=== PATIENT | male | born 1935 | race Caucasian/White ===

== ENCOUNTER 2016-11-19 18:20 | Emergency (ER) | payer OTHER, BC ==
[~2016-11-19] VITALS: Ht 162.6 cm; Wt 77.6 kg
[~2016-11-19 18:20] MED LIST: ADVAIR HFA120 INHALA IH; ALLOPURINOL100 MG PO; AMIODARONE HCL200 MG PO; AMLODIPINE BESYL5 MG PO; AMOX TR-K CLV1 EAC3 PO; ASPIRIN81 M2 PO; Amaryl PO; Aspirin E.C. PO; BICALUTAMIDE50 MG PO; CORDARONE200 MG PO; DULCOLAX10 MG PR; DUONEB 2.5-0.5 M3 ML AEROSOL; ELIQUIS2.5 MG PO; ESOMEPRAZOLE MA40 MG PO; EYE SUPPORT PO; FLEET ENEMA-AD118 ML PR; FLOMAX0.4 MG PO; FUROSEMIDE20 MG PO; FUROSEMIDE40 MG PO; GLIPIZIDE XL5 MG PO; GLIPIZIDE5 MG PO; HYTRIN10 MG PO; HYTRIN5 MG PO; Hytrin PO; LIPITOR10 MG PO; LISINOPRIL20 MG PO; LOPRESSOR25 MG PO; LOPRESSOR50 MG PO; Lasix PO; Lopressor PO; MACULAR VITAMI1 EACH PO; MACUVITE EYE C1 EACH PO; METOPROLOL TART75 MG PO; MILK OF MAGN PO; MYLICON,MYLANTA80 MG PO; NITROSTAT0.4 MG SL; NORVASC10 MG PO; NORVASC5 MG PO; Norvasc PO; PANTOPRAZOLE SO40 MG PO; PHENERGAN-CODE120 ML PO; PRAVASTATIN SOD40 MG PO; PRILOSEC20 MG PO; PROMETHAZINE HC25 M1 PO; ROCALTROL0.5 MCG PO; SALINE NASAL SP45 ML BOTH NARES; SODIUM FLUORIDE PO; SORE THROAT LO1 EAC3 MM; SPIRIVA RESPIMAT4 GM IH; TYLENOL ARTHRI650 MG PO; ZETIA10 MG PO; ZOCOR20 MG PO; Zestril,Prinivil PO; Zocor PO
[2016-11-19 20:18] LABS: ADD MIUA? YES; BILIRUBIN NEGATIVE; BLOOD TRACE; COLOR YELLOW ((YELLOW)); GLUCOSE (STRIP) NEGATIVE; KETONES NEGATIVE; LEUKOCYTES LARGE; NITRITE NEGATIVE; PROTEIN (STRIP) NEGATIVE; SPECIFIC GRAVITY 1.011 (1.000-1.030); UROBILINOGEN 0.2 MG/DL (0.2-1.0)
[2016-11-19 21:14] LABS: AMORPHOUS PHOSPHATE CRYSTALS 2+; BACTERIA 2+; CASTS PRESENT /LPF; CRYSTALS PRESENT; EPITHELIAL CELLS NONE SEEN; HYALINE CASTS 0-5 /LPF; MUCUS NONE SEEN; RED BLOOD CELLS 0-5 /HPF (0-5); WHITE BLOOD CELLS 40-50 /HPF (0-5)
[2016-11-19] MEDS ORDERED: KEFLEX500 MG PO (21:22)
[2016-11-19 21:37] VITALS: BP 118/62
== END 2016-11-19 21:39 | disposition home or self-care (01) ==
LOC: RME 18:20 → EME 18:20 → RME 21:39
PROVIDERS: Physician Assistant
PROC: 0T9B70Z Drainage of Bladder with Drainage Device, Via Natural or Artificial Opening (ICD-10-PCS; principal; 2016-11-19)
DX: N39.0 Urinary tract infection, site not specified (principal); R34 Anuria and oliguria; E11.9 Type 2 diabetes mellitus without complications; E78.5 Hyperlipidemia, unspecified; I10 Essential (primary) hypertension; I25.2 Old myocardial infarction; Z87.442 Personal history of urinary calculi; Z86.73 Personal history of transient ischemic attack (TIA), and cerebral infarction without residual deficits; Z98.61 Coronary angioplasty status; Z87.891 Personal history of nicotine dependence
CPT/HCPCS: 81003; 87077; 87086; 87186; 99281; 99284

== ENCOUNTER 2016-11-24 18:58 | Emergency (ER) | payer OTHER, BC ==
[~2016-11-24] VITALS: Ht 162.6 cm; Wt 79.6 kg
[~2016-11-24 18:58] MED LIST changes: +KEFLEX500 MG PO
[2016-11-24 23:49] VITALS: BP 106/64
== END 2016-11-24 23:50 | disposition home or self-care (01) ==
LOC: EME 18:58
PROC: 3E0234Z Introduction of Serum, Toxoid and Vaccine into Muscle, Percutaneous Approach (ICD-10-PCS; principal; 2016-11-24)
DX: S51.001A Unspecified open wound of right elbow, initial encounter (principal); W18.30XA Fall on same level, unspecified, initial encounter; Z23 Encounter for immunization; E11.9 Type 2 diabetes mellitus without complications; E78.5 Hyperlipidemia, unspecified; I10 Essential (primary) hypertension; I25.2 Old myocardial infarction; Z87.442 Personal history of urinary calculi; Z86.73 Personal history of transient ischemic attack (TIA), and cerebral infarction without residual deficits; Z98.61 Coronary angioplasty status; Z87.891 Personal history of nicotine dependence
CPT/HCPCS: 73080; 99281; 99284

== ENCOUNTER → 2016-12-08 | Outpatient (CLI) | payer OTHER, BC | END | disposition home or self-care (01) | LOC: NUC 08:50 | DX: C61 Malignant neoplasm of prostate (principal); M17.11 Unilateral primary osteoarthritis, right knee; M17.12 Unilateral primary osteoarthritis, left knee; M19.071 Primary osteoarthritis, right ankle and foot; M19.072 Primary osteoarthritis, left ankle and foot | CPT/HCPCS: 78306; A9503 ==

== ENCOUNTER 2016-12-26 10:48 | Inpatient (IN) | payer OTHER, BC ==
[~2016-12-26] VITALS: Ht 165.1 cm; Wt 84.5 kg
[2016-12-26 11:43] LABS: HEMATOCRIT 34.3 % (38.0-50.0); MCH 28.8 PG (29.0-34.0); MCHC 33.5 G/DL (30.0-36.0); MCV 85.8 FL (86-99); MEAN PLAT.VOLUME 10.9 uM^3 (9.0-12.4); PLATELET COUNT 108 K/uL (156-360); RBC DIS.WIDTH-CV 13.9 % (11.8-14.6); RBC DIS.WIDTH-SD 42.8 % (39-53); WHITE BLOOD COUNT 5.5 K/uL (4.1-10.2)
[2016-12-26 11:53] LABS: CHLORIDE 108 mEq/L (99-109); POTASSIUM 4.4 mEq/L (3.7-5.4); SODIUM 142 mEq/L (136-147)
[2016-12-26 11:56] LABS: GLUCOSE 135 mg/dL (70-99)
[2016-12-26 11:57] LABS: ANION GAP 11 MEQ/L (2-14)
[2016-12-26 11:59] LABS: ALKALINE PHOSPHATASE 73 IU/L (3-129); GFR ESTIMATE (CALCULATED) 19 mL/min/
[2016-12-26 12:01] LABS: UREA NITROGEN (BUN) 46 mg/dL (9-23)
[2016-12-26] MEDS ORDERED: LASIX40 MG PO (15:36)
[2016-12-26] MEDS ORDERED: LISINOPRIL20 MG PO (15:44)
[2016-12-26] MEDS ORDERED: COMBIVENT RESPIM4 GM IH (15:45)
[2016-12-26 17:20] VITALS: BP 142/67
[2016-12-26 19:50] VITALS: BP 121/62
[2016-12-26 23:30] VITALS: BP 124/62
[2016-12-27 03:50] VITALS: BP 138/61
[2016-12-27 06:05] LABS: HEMATOCRIT 33.6 % (38.0-50.0); MCH 28.6 PG (29.0-34.0); MCV 86.6 FL (86-99); MEAN PLAT.VOLUME 11.2 uM^3 (9.0-12.4); PLATELET COUNT 102 K/uL (156-360); RBC DIS.WIDTH-CV 14.3 % (11.8-14.6); RBC DIS.WIDTH-SD 45.2 % (39-53); RED BLOOD COUNT 3.88 M/uL (4.00-5.50); WHITE BLOOD COUNT 6.3 K/uL (4.1-10.2)
[2016-12-27 06:25] LABS: ANION GAP 7 MEQ/L (2-14); CHLORIDE 104 MEQ/L (99-109); GFR ESTIMATE (CALCULATED) 21 mL/min/; GLUCOSE 122 mg/dL (70-99); POTASSIUM 4.7 MEQ/L (3.7-5.4); SAMPLE HEMOLYSIS CHECK 0; SAMPLE ICTERIC CHECK 0; SAMPLE LIPEMIA CHECK 0; SODIUM 140 MEQ/L (136-147); UREA NITROGEN (BUN) 44 mg/dL (9-23)
[2016-12-27 07:27] VITALS: BP 133/60
[2016-12-27 11:50] VITALS: BP 136/69
[2016-12-27 12:17] LABS: INTER. NORMALIZED RATIO 1.2; PROTHROMBIN TIME 12.6 (9.2-11.2); PTT 29.7 (25-32)
[2016-12-27 17:44] LABS: HEMATOCRIT 31.1 % (38.0-50.0); MCH 28.5 PG (29.0-34.0); MCHC 32.8 G/DL (30.0-36.0); MCV 86.9 FL (86-99); MEAN PLAT.VOLUME 11.4 uM^3 (9.0-12.4); PLATELET COUNT 98 K/uL (156-360); RBC DIS.WIDTH-CV 14.2 % (11.8-14.6); RBC DIS.WIDTH-SD 45.1 % (39-53); RED BLOOD COUNT 3.58 M/uL (4.00-5.50); WHITE BLOOD COUNT 7.1 K/uL (4.1-10.2)
[2016-12-27 18:35] VITALS: BP 101/51
[2016-12-27 20:02] VITALS: BP 108/70; BP 144/66
[2016-12-28] VITALS: BP 125/61
[2016-12-28 03:44] VITALS: BP 121/62
[2016-12-28 05:57] LABS: ANION GAP 9 MEQ/L (2-14); CHLORIDE 100 MEQ/L (99-109); GFR ESTIMATE (CALCULATED) 21 mL/min/; GLUCOSE 140 mg/dL (70-99); POTASSIUM 4.3 MEQ/L (3.7-5.4); SAMPLE HEMOLYSIS CHECK 0; SAMPLE ICTERIC CHECK 0; SAMPLE LIPEMIA CHECK 0; SODIUM 135 MEQ/L (136-147); UREA NITROGEN (BUN) 50 mg/dL (9-23)
[2016-12-28 10:40] VITALS: BP 129/78
[2016-12-28 16:24] VITALS: BP 122/77
[2016-12-28 20:05] VITALS: BP 104/51
[2016-12-28 23:58] VITALS: BP 119/56
[2016-12-29 03:39] VITALS: BP 101/56
[2016-12-29 07:24] VITALS: BP 136/54
[2016-12-29 09:29] LABS: HEMATOCRIT 26.4 % (38.0-50.0); MCV 84.9 FL (86-99)
[2016-12-29 09:53] LABS: ANION GAP 12 MEQ/L (2-14); CHLORIDE 98 MEQ/L (99-109); GFR ESTIMATE (CALCULATED) 20 mL/min/; GLUCOSE 142 mg/dL (70-99); POTASSIUM 3.9 MEQ/L (3.7-5.4); SAMPLE HEMOLYSIS CHECK 0; SAMPLE ICTERIC CHECK 0; SAMPLE LIPEMIA CHECK 0; SODIUM 133 MEQ/L (136-147); UREA NITROGEN (BUN) 51 mg/dL (9-23)
[2016-12-29 12:16] VITALS: BP 118/44
[2016-12-29 15:40] VITALS: BP 103/60
[2016-12-29 19:39] VITALS: BP 111/56
[2016-12-30] VITALS: BP 107/59
[2016-12-30 04:19] VITALS: BP 106/57
[2016-12-30 08:30] VITALS: BP 110/56
[2016-12-30 11:42] VITALS: BP 114/63
[2016-12-30 16:43] VITALS: BP 140/70
[2016-12-30 20:24] VITALS: BP 112/61
[2016-12-31 00:30] VITALS: BP 118/62
[2016-12-31 04:13] VITALS: BP 123/87
[2016-12-31 06:19] LABS: ANION GAP 10 MEQ/L (2-14); CHLORIDE 99 MEQ/L (99-109); GLUCOSE 143 mg/dL (70-99); MAGNESIUM 2.1 mg/dl (1.3-2.7); SAMPLE HEMOLYSIS CHECK 0; SAMPLE ICTERIC CHECK 0; SAMPLE LIPEMIA CHECK 0; SODIUM 132 MEQ/L (136-147); UREA NITROGEN (BUN) 67 mg/dL (9-23)
[2016-12-31 06:21] LABS: GFR ESTIMATE (CALCULATED) 14 mL/min/; POTASSIUM 4.8 MEQ/L (3.7-5.4)
[2016-12-31 06:24] LABS: EOSINOPHIL (%) 4.7 % (0-5); EOSINOPHIL COUNT 0.2 K/uL (0-0.3); HEMATOCRIT 23.7 % (38.0-50.0); IMMATURE GRANULOCYTE (%) 0.5 % (0.0-0.7); LYMPHOCYTE COUNT 0.8 K/uL (1.0-2.8); MCH 28.2 PG (29.0-34.0); MCHC 33.3 G/DL (30.0-36.0); MCV 84.6 FL (86-99); MEAN PLAT.VOLUME 11.4 uM^3 (9.0-12.4); MONOCYTE (%) 12.6 % (3-12); MONOCYTE COUNT 0.5 K/uL (0-0.8); NEUTROPHIL (%) 64.6 % (45-76); NEUTROPHIL COUNT 2.8 K/uL (1.8-6.4); PLATELET COUNT 102 K/uL (156-360); RBC DIS.WIDTH-CV 14.6 % (11.8-14.6); RBC DIS.WIDTH-SD 45.4 % (39-53); WHITE BLOOD COUNT 4.3 K/uL (4.1-10.2)
[2016-12-31 07:40] VITALS: BP 98/53
[2016-12-31 11:52] VITALS: BP 131/72
[2016-12-31 15:50] VITALS: BP 130/60
[2016-12-31 20:48] VITALS: BP 118/59
[2017-01-01 00:23] VITALS: BP 146/62
[2017-01-01 05:10] VITALS: BP 108/53
[2017-01-01 07:54] VITALS: BP 98/55
[2017-01-01 08:54] LABS: HEMATOCRIT 26.2 % (38.0-50.0); MCHC 32.8 G/DL (30.0-36.0); MCV 85.3 FL (86-99); PLATELET COUNT 125 K/uL (156-360); RBC DIS.WIDTH-SD 46.5 % (39-53); RED BLOOD COUNT 3.07 M/uL (4.00-5.50)
[2017-01-01 09:17] LABS: ANION GAP 8 MEQ/L (2-14); CHLORIDE 101 MEQ/L (99-109); POTASSIUM 4.9 MEQ/L (3.7-5.4); SAMPLE HEMOLYSIS CHECK 0; SAMPLE ICTERIC CHECK 0; SAMPLE LIPEMIA CHECK 0; SODIUM 134 MEQ/L (136-147)
[2017-01-01 09:22] LABS: GFR ESTIMATE (CALCULATED) 16 mL/min/; GLUCOSE 130 mg/dL (70-99); UREA NITROGEN (BUN) 67 mg/dL (9-23)
[2017-01-01 11:52] VITALS: BP 119/55
[2017-01-01 12:46] LABS: POC NON-PRINT COM 1 ND
[2017-01-01 15:38] VITALS: BP 101/57
[2017-01-02] VITALS (7 sets, daily range): BP systolic 109–137; BP diastolic 55–64
[2017-01-02 06:06] LABS: EOSINOPHIL (%) 3.6 % (0-5); EOSINOPHIL COUNT 0.2 K/uL (0-0.3); HEMATOCRIT 24.9 % (38.0-50.0); IMMATURE GRANULOCYTE (%) 0.7 % (0.0-0.7); MCH 27.8 PG (29.0-34.0); MCHC 32.5 G/DL (30.0-36.0); MCV 85.6 FL (86-99); MEAN PLAT.VOLUME 10.5 uM^3 (9.0-12.4); MONOCYTE (%) 9.6 % (3-12); MONOCYTE COUNT 0.4 K/uL (0-0.8); NEUTROPHIL (%) 63.5 % (45-76); NEUTROPHIL COUNT 2.8 K/uL (1.8-6.4); PLATELET COUNT 122 K/uL (156-360); RBC DIS.WIDTH-CV 14.9 % (11.8-14.6); RBC DIS.WIDTH-SD 46.7 % (39-53); RED BLOOD COUNT 2.91 M/uL (4.00-5.50); WHITE BLOOD COUNT 4.5 K/uL (4.1-10.2)
[2017-01-02 06:23] LABS: ANION GAP 8 MEQ/L (2-14); CHLORIDE 103 MEQ/L (99-109); GFR ESTIMATE (CALCULATED) 17 mL/min/; GLUCOSE 113 mg/dL (70-99); IRON 29 MCG/DL (35-150); POTASSIUM 5.2 MEQ/L (3.7-5.4); SAMPLE HEMOLYSIS CHECK 0; SAMPLE ICTERIC CHECK 0; SAMPLE LIPEMIA CHECK 0; SODIUM 135 MEQ/L (136-147); UREA NITROGEN (BUN) 66 mg/dL (9-23)
[2017-01-02 07:51] LABS: FERRITIN 86 NG/ML (22-322)
[2017-01-03 03:27] VITALS: BP 109/56
[2017-01-03 05:27] LABS: HEMATOCRIT 25.9 % (38.0-50.0); MCH 27.7 PG (29.0-34.0); MCV 86.3 FL (86-99); MEAN PLAT.VOLUME 10.1 uM^3 (9.0-12.4); PLATELET COUNT 147 K/uL (156-360); RBC DIS.WIDTH-CV 14.8 % (11.8-14.6); WHITE BLOOD COUNT 5.1 K/uL (4.1-10.2)
[2017-01-03 06:22] LABS: ANION GAP 8 MEQ/L (2-14); CHLORIDE 103 MEQ/L (99-109); GFR ESTIMATE (CALCULATED) 20 mL/min/; GLUCOSE 128 mg/dL (70-99); POTASSIUM 5.1 MEQ/L (3.7-5.4); SAMPLE HEMOLYSIS CHECK 0; SAMPLE ICTERIC CHECK 0; SAMPLE LIPEMIA CHECK 0; SODIUM 137 MEQ/L (136-147); UREA NITROGEN (BUN) 60 mg/dL (9-23)
[2017-01-03 08:12] VITALS: BP 132/62
[2017-01-03 11:56] VITALS: BP 133/63
[2017-01-03] MEDS ORDERED: FERROUS SULFAT325 MG PO (13:15)
[2017-01-03] MEDS ORDERED: FUROSEMIDE20 MG PO (13:17)
[2017-01-03] MEDS ORDERED: DOCUSATE SODIU100 MG PO (13:17)
[2017-01-03] MEDS ORDERED: CITROMA296 ML PO (13:17)
[2017-01-03] MEDS ORDERED: SENNA PLUS TAB1 EACH PO (13:18)
[2017-01-03] MEDS ORDERED: ENDOCET 5-3251 EACH PO (13:18)
[2017-01-03] MEDS ORDERED: BISAC-EVAC10 MG PR (13:43)
[2017-01-03 16:30] VITALS: BP 149/65
== END 2017-01-03 17:52 | DRG 536 ==
LOC: EME 10:48 → EDOF 14:42 → 3EAST 14:42
PROVIDERS: Emergency Medicine; Hospitalist; Internal Medicine; Internal Medicine Nephrology; Nurse Practitioner Adult Health; Orthopaedic Surgery; Physician Assistant
PROC: 0SS Lower Joints, Reposition (ICD-10-PCS; principal; 2016-12-27)
DX: S72.141A Displaced intertrochanteric fracture of right femur, initial encounter for closed fracture (principal); I50.20 Unspecified systolic (congestive) heart failure; N17.9 Acute kidney failure, unspecified; N18.4 Chronic kidney disease, stage 4 (severe); W18.30XA Fall on same level, unspecified, initial encounter; I48.2 Chronic atrial fibrillation; D63.1 Anemia in chronic kidney disease; I25.5 Ischemic cardiomyopathy; Z87.891 Personal history of nicotine dependence; I25.2 Old myocardial infarction; E11.22 Type 2 diabetes mellitus with diabetic chronic kidney disease; I25.10 Atherosclerotic heart disease of native coronary artery without angina pectoris; R33.9 Retention of urine, unspecified; J44.9 Chronic obstructive pulmonary disease, unspecified; D62 Acute posthemorrhagic anemia; D69.6 Thrombocytopenia, unspecified; E78.5 Hyperlipidemia, unspecified; I13.0 Hypertensive heart and chronic kidney disease with heart failure and stage 1 through stage 4 chronic kidney disease, or unspecified chronic kidney disease; R19.5 Other fecal abnormalities; E87.1 Hypo-osmolality and hyponatremia; N40.1 Benign prostatic hyperplasia with lower urinary tract symptoms; D50.9 Iron deficiency anemia, unspecified; C61 Malignant neoplasm of prostate; Y92.009 Unspecified place in unspecified non-institutional (private) residence as the place of occurrence of the external cause
CPT/HCPCS: 73501; 73502; 73552; 73560; 73564; 76000; 76770; 80048; 80053; 81003; 82272; 82306; 82728; 83540; 83735; 84100; 84466; 85014; 85018; 85025; 85027; 85610; 85730; 93005; 94640; 94640 76; 97530 GO; 97530 GP; 99281; 99285; C1713; G0103; J0690; J1650; J1756; J2270; J2405; J7030; J7050; J7120; S0028

== ENCOUNTER 2017-01-23 06:06 | Inpatient (IN) | payer OTHER, BC ==
[~2017-01-23] VITALS: Ht 162.6 cm; Wt 76.9 kg
[~2017-01-23 06:06] MED LIST changes: +BISAC-EVAC10 MG PR; +CITROMA296 ML PO; +COMBIVENT RESPIM4 GM IH; +DOCUSATE SODIU100 MG PO; +ENDOCET 5-3251 EACH PO; +FERROUS SULFAT325 MG PO; +LASIX40 MG PO; +SENNA PLUS TAB1 EACH PO
[2017-01-23 07:24] LABS: EOSINOPHIL (%) 1.4 % (0-5); HEMATOCRIT 32.9 % (38.0-50.0); IMMATURE GRANULOCYTE (%) 0.7 % (0.0-0.7); INSTRUMENT ABS NEUTROPHIL CT 1.3 K/uL; LYMPHOCYTE COUNT 0.2 K/uL (1.0-2.8); MCH 28.5 PG (29.0-34.0); MCHC 32.5 G/DL (30.0-36.0); MCV 87.7 FL (86-99); MEAN PLAT.VOLUME 10.6 uM^3 (9.0-12.4); MONOCYTE (%) 0.7 % (3-12); NEUTROPHIL (%) 86.9 % (45-76); NEUTROPHIL COUNT 1.3 K/uL (1.8-6.4); PLATELET COUNT 142 K/uL (156-360); RBC DIS.WIDTH-CV 14.9 % (11.8-14.6); RBC DIS.WIDTH-SD 47.8 % (39-53); RED BLOOD COUNT 3.75 M/uL (4.00-5.50)
[2017-01-23 07:25] LABS: WHITE BLOOD COUNT 1.5 K/uL (4.1-10.2)
[2017-01-23] MEDS ORDERED: OXAYDO5 MG PO (07:37)
[2017-01-23 08:29] LABS: BILIRUBIN NEGATIVE; BLOOD LARGE; COLOR BLOODY ((YELLOW)); GLUCOSE (STRIP) 250; KETONES NEGATIVE; SPECIFIC GRAVITY 1.015 (1.000-1.030)
[2017-01-23 08:30] LABS: ADD MIUA? YES; LEUKOCYTES NEGATIVE; NITRITE NEGATIVE; PROTEIN (STRIP) >300; UROBILINOGEN 0.2 MG/DL (0.2-1.0)
[2017-01-23 08:31] LABS: RED BLOOD CELLS TNTC /HPF (0-5); UCUL ADDED? YES
[2017-01-23 08:57] LABS: ANION GAP 10 MEQ/L (2-14); CHLORIDE 105 MEQ/L (99-109); POTASSIUM 4.2 MEQ/L (3.7-5.4); SAMPLE HEMOLYSIS CHECK 0; SAMPLE ICTERIC CHECK 0; SAMPLE LIPEMIA CHECK 0; SODIUM 139 MEQ/L (136-147); TOTAL BILIRUBIN 1.2 MG/DL (0.0-1.0)
[2017-01-23 09:03] LABS: ALKALINE PHOSPHATASE 96 IU/L (3-129); GFR ESTIMATE (CALCULATED) 29 mL/min/; GLUCOSE 111 mg/dL (70-99); UREA NITROGEN (BUN) 43 mg/dL (9-23)
[2017-01-23 12:29] VITALS: BP 120/56
[2017-01-23] MEDS ORDERED: CORDARONE200 MG PO (13:30)
[2017-01-23] MEDS ORDERED: MILK OF MAGN PO (13:35)
[2017-01-23 20:00] VITALS: BP 118/59
[2017-01-23 23:24] VITALS: BP 98/55
[2017-01-24 03:56] VITALS: BP 108/57
[2017-01-24 08:00] VITALS: BP 124/61
[2017-01-24 08:18] LABS: ANION GAP 12 MEQ/L (2-14); CHLORIDE 103 MEQ/L (99-109); GFR ESTIMATE (CALCULATED) 26 mL/min/; GLUCOSE 106 mg/dL (70-99); POTASSIUM 4.8 MEQ/L (3.7-5.4); SAMPLE HEMOLYSIS CHECK 0; SAMPLE ICTERIC CHECK 0; SAMPLE LIPEMIA CHECK 0; SODIUM 136 MEQ/L (136-147); UREA NITROGEN (BUN) 50 mg/dL (9-23)
[2017-01-24 08:40] LABS: ABS NEUTROPHIL COUNT 12.1; BAND NEUTROPHILS 23.9 % (0-8.0); EOSINOPHIL ABS CT 0; INSTRUMENT ABS NEUTROPHIL CT 11.5 K/uL; LYMPHOCYTES 1.7 % (15.0-45.0); MCH 28.2 PG (29.0-34.0); MCHC 31.5 G/DL (30.0-36.0); MCV 89.7 FL (86-99); MEAN PLAT.VOLUME 11.5 uM^3 (9.0-12.4); MYELOCYTES 0.9 %; OVALOCYTES 1+; PLAT.SUFFICIENCY DECREASED; RBC DIS.WIDTH-CV 15.6 % (11.8-14.6); RED BLOOD COUNT 3.01 M/uL (4.00-5.50); SEG.NEUTROPHILS 66.4 % (46.0-76.0)
[2017-01-24 08:55] LABS: PLATELET COUNT 87 K/uL (156-360); WHITE BLOOD COUNT 13.4 K/uL (4.1-10.2)
[2017-01-24 16:00] VITALS: BP 126/68
[2017-01-24 19:03] VITALS: BP 118/65
[2017-01-24 23:42] VITALS: BP 110/64
[2017-01-25 03:45] VITALS: BP 106/58
[2017-01-25 06:43] LABS: HEMATOCRIT 25.5 % (38.0-50.0); MCH 28.8 PG (29.0-34.0); MCHC 32.5 G/DL (30.0-36.0); MCV 88.5 FL (86-99); MEAN PLAT.VOLUME 11.9 uM^3 (9.0-12.4); PLATELET COUNT 85 K/uL (156-360); RBC DIS.WIDTH-CV 15.6 % (11.8-14.6); RBC DIS.WIDTH-SD 50.6 % (39-53); RED BLOOD COUNT 2.88 M/uL (4.00-5.50); WHITE BLOOD COUNT 9.7 K/uL (4.1-10.2)
[2017-01-25 07:03] LABS: ANION GAP 9 MEQ/L (2-14); CHLORIDE 105 MEQ/L (99-109); GFR ESTIMATE (CALCULATED) 31 mL/min/; GLUCOSE 87 mg/dL (70-99); POTASSIUM 4.6 MEQ/L (3.7-5.4); SAMPLE HEMOLYSIS CHECK 0; SAMPLE ICTERIC CHECK 0; SAMPLE LIPEMIA CHECK 0; SODIUM 135 MEQ/L (136-147); UREA NITROGEN (BUN) 52 mg/dL (9-23)
[2017-01-25 07:29] LABS: EOSINOPHIL (%) 0.2 % (0-5); IMMATURE GRANULOCYTE (%) 2.9 % (0.0-0.7); IMMATURE GRANULOCYTE COUNT 0.3 K/uL; INSTRUMENT ABS NEUTROPHIL CT 8.2 K/uL; LYMPHOCYTE COUNT 0.6 K/uL (1.0-2.8); MONOCYTE COUNT 0.6 K/uL (0-0.8); NEUTROPHIL (%) 84.8 % (45-76); NEUTROPHIL COUNT 8.2 K/uL (1.8-6.4)
[2017-01-25 08:30] VITALS: BP 88/50
[2017-01-25 11:15] VITALS: BP 113/63
[2017-01-25 15:55] VITALS: BP 102/64
[2017-01-25 19:30] VITALS: BP 115/66
[2017-01-25 23:10] VITALS: BP 106/57
[2017-01-26 03:50] VITALS: BP 127/70
[2017-01-26 07:07] LABS: EOSINOPHIL COUNT 0.1 K/uL (0-0.3); HEMATOCRIT 26.2 % (38.0-50.0); IMMATURE GRANULOCYTE COUNT 0.1 K/uL; INSTRUMENT ABS NEUTROPHIL CT 7.1 K/uL; LYMPHOCYTE COUNT 0.7 K/uL (1.0-2.8); MCH 28.1 PG (29.0-34.0); MCHC 31.7 G/DL (30.0-36.0); MCV 88.8 FL (86-99); MONOCYTE (%) 4.9 % (3-12); MONOCYTE COUNT 0.4 K/uL (0-0.8); NEUTROPHIL (%) 84.4 % (45-76); NEUTROPHIL COUNT 7.1 K/uL (1.8-6.4); PLATELET COUNT 94 K/uL (156-360); RBC DIS.WIDTH-CV 15.8 % (11.8-14.6); RBC DIS.WIDTH-SD 51.4 % (39-53); RED BLOOD COUNT 2.95 M/uL (4.00-5.50); WHITE BLOOD COUNT 8.4 K/uL (4.1-10.2)
[2017-01-26 07:39] LABS: ANION GAP 7 MEQ/L (2-14); CHLORIDE 106 MEQ/L (99-109); GFR ESTIMATE (CALCULATED) 32 mL/min/; GLUCOSE 92 mg/dL (70-99); MAGNESIUM 1.7 mg/dl (1.3-2.7); POTASSIUM 4.3 MEQ/L (3.7-5.4); SAMPLE HEMOLYSIS CHECK 0; SAMPLE ICTERIC CHECK 0; SAMPLE LIPEMIA CHECK 0; SODIUM 134 MEQ/L (136-147); UREA NITROGEN (BUN) 50 mg/dL (9-23); URIC ACID 6.6 mg/dL (3.1-9.2)
[2017-01-26 08:25] VITALS: BP 122/58
[2017-01-26 12:56] VITALS: BP 142/64
[2017-01-26 16:15] VITALS: BP 140/70
[2017-01-26 19:42] VITALS: BP 135/65
[2017-01-26 23:37] VITALS: BP 137/70
[2017-01-27 03:42] VITALS: BP 141/70
[2017-01-27 07:31] LABS: ANION GAP 6 MEQ/L (2-14); CHLORIDE 106 MEQ/L (99-109); GFR ESTIMATE (CALCULATED) 34 mL/min/; GLUCOSE 111 mg/dL (70-99); POTASSIUM 4.3 MEQ/L (3.7-5.4); SAMPLE HEMOLYSIS CHECK 0; SAMPLE ICTERIC CHECK 0; SAMPLE LIPEMIA CHECK 0; SODIUM 135 MEQ/L (136-147); UREA NITROGEN (BUN) 42 mg/dL (9-23)
[2017-01-27 08:15] VITALS: BP 136/63
[2017-01-27 11:35] VITALS: BP 135/61
[2017-01-27 15:16] VITALS: BP 130/70
[2017-01-27 21:08] VITALS: BP 125/64
[2017-01-28 01:33] VITALS: BP 102/55
[2017-01-28 03:28] VITALS: BP 126/61
[2017-01-28 07:47] VITALS: BP 128/80
[2017-01-28 07:59] LABS: ANION GAP 9 MEQ/L (2-14); CHLORIDE 107 MEQ/L (99-109); GFR ESTIMATE (CALCULATED) 34 mL/min/; GLUCOSE 107 mg/dL (70-99); POTASSIUM 4.3 MEQ/L (3.7-5.4); SAMPLE HEMOLYSIS CHECK 0; SAMPLE ICTERIC CHECK 0; SAMPLE LIPEMIA CHECK 0; SODIUM 139 MEQ/L (136-147); UREA NITROGEN (BUN) 37 mg/dL (9-23)
[2017-01-28 10:29] VITALS: BP 125/62
[2017-01-28] MEDS ORDERED: TAMSULOSIN HCL0.4 MG PO (11:52)
[2017-01-28] MEDS ORDERED: LOPRESSOR25 MG PO (11:58)
[2017-01-28] MEDS ORDERED: CEFTIN500 MG PO (12:00)
[2017-01-28 16:00] VITALS: BP 124/63
== END 2017-01-28 18:31 | DRG 698 ==
LOC: EME → EDBD 06:06 → 2EAST 09:20 → EDOF 09:20 → 2EAST 12:43
PROVIDERS: Emergency Medicine; Internal Medicine; Internal Medicine Nephrology
DX: T83.091A Other mechanical complication of indwelling urethral catheter, initial encounter (principal); S37.39XA Other injury of urethra, initial encounter; A41.9 Sepsis, unspecified organism; N39.0 Urinary tract infection, site not specified; C79.51 Secondary malignant neoplasm of bone; N18.4 Chronic kidney disease, stage 4 (severe); N17.9 Acute kidney failure, unspecified; I50.20 Unspecified systolic (congestive) heart failure; I47.2 Ventricular tachycardia; Y84.6 Urinary catheterization as the cause of abnormal reaction of the patient, or of later complication, without mention of misadventure at the time of the procedure; R33.9 Retention of urine, unspecified; N26.1 Atrophy of kidney (terminal); N20.0 Calculus of kidney; D63.1 Anemia in chronic kidney disease; E11.22 Type 2 diabetes mellitus with diabetic chronic kidney disease; J44.9 Chronic obstructive pulmonary disease, unspecified; E78.00 Pure hypercholesterolemia, unspecified; I25.5 Ischemic cardiomyopathy; I48.2 Chronic atrial fibrillation; I25.10 Atherosclerotic heart disease of native coronary artery without angina pectoris; C61 Malignant neoplasm of prostate; N40.1 Benign prostatic hyperplasia with lower urinary tract symptoms; Y92.129 Unspecified place in nursing home as the place of occurrence of the external cause; I25.2 Old myocardial infarction; Z87.891 Personal history of nicotine dependence; Z95.5 Presence of coronary angioplasty implant and graft
CPT/HCPCS: 74176; 76770; 80048; 80053; 80069; 81003; 83605; 83735; 84100; 84550; 85025; 86850; 86900; 86901; 87040; 87077; 87086; 87186; 87801; 93005; 94010; 94640; 94640 76; 94760; 94799; 97530 GO; 99202; 99281; 99285; J0692; J0696; J2405; J3010; J7030; J7050

== ENCOUNTER 2017-02-26 17:14 | Emergency (ER) | payer OTHER, BC ==
[~2017-02-26] VITALS: Ht 165.1 cm; Wt 75.0 kg
[~2017-02-26 17:14] MED LIST changes: +CEFTIN500 MG PO; +OXAYDO5 MG PO; +TAMSULOSIN HCL0.4 MG PO
[2017-02-26] MEDS ORDERED: NYSTATIN-TRIAMC15 GM TP (20:01)
[2017-02-26 20:16] VITALS: BP 156/70
== END 2017-02-26 20:17 | disposition home or self-care (01) ==
LOC: EME 17:14
DX: S51.812A Laceration without foreign body of left forearm, initial encounter (principal); W01.190A Fall on same level from slipping, tripping and stumbling with subsequent striking against furniture, initial encounter; B37.2 Candidiasis of skin and nail; I50.9 Heart failure, unspecified; G89.29 Other chronic pain; I10 Essential (primary) hypertension; E78.5 Hyperlipidemia, unspecified; I25.2 Old myocardial infarction; M10.9 Gout, unspecified; E11.9 Type 2 diabetes mellitus without complications; F32.9 Major depressive disorder, single episode, unspecified; Z86.73 Personal history of transient ischemic attack (TIA), and cerebral infarction without residual deficits; Z87.891 Personal history of nicotine dependence; Z96.641 Presence of right artificial hip joint
CPT/HCPCS: 73090; 73502; 99281; 99284

== ENCOUNTER 2017-05-01 13:29 | Emergency (ER) | payer OTHER, BC ==
[~2017-05-01] VITALS: Ht 162.6 cm; Wt 71.5 kg
[~2017-05-01 13:29] MED LIST changes: +NYSTATIN-TRIAMC15 GM TP
[2017-05-01 14:44] LABS: HEMATOCRIT 42.3 % (38.0-50.0); MCH 28.7 PG (29.0-34.0); MCHC 32.6 G/DL (30.0-36.0); MCV 87.9 FL (86-99); MEAN PLAT.VOLUME 10.8 uM^3 (9.0-12.4); PLATELET COUNT 132 K/uL (156-360); RBC DIS.WIDTH-CV 13.6 % (11.8-14.6); RBC DIS.WIDTH-SD 43.8 % (39-53); RED BLOOD COUNT 4.81 M/uL (4.00-5.50); WHITE BLOOD COUNT 5.8 K/uL (4.1-10.2)
[2017-05-01 14:55] LABS: CHLORIDE 101 mEq/L (99-109); POTASSIUM 4.7 mEq/L (3.7-5.4); SODIUM 137 mEq/L (136-147)
[2017-05-01 14:56] LABS: GLUCOSE 148 mg/dL (70-99)
[2017-05-01 14:58] LABS: ANION GAP 9 MEQ/L (2-14)
[2017-05-01 15:00] LABS: GFR ESTIMATE (CALCULATED) 25 mL/min/
[2017-05-01 15:01] LABS: UREA NITROGEN (BUN) 32 mg/dL (9-23)
[2017-05-01 15:05] LABS: TROP-I INTERPRETATION NEGATIVE; TROPONIN-I 0.03 ng/mL (0.0-0.30)
[2017-05-01 15:48] LABS: ADD MIUA? YES; BILIRUBIN NEGATIVE; BLOOD NEGATIVE; COLOR YELLOW ((YELLOW)); GLUCOSE (STRIP) NEGATIVE; KETONES NEGATIVE; LEUKOCYTES TRACE; NITRITE NEGATIVE; PROTEIN (STRIP) NEGATIVE; SPECIFIC GRAVITY 1.011 (1.000-1.030); UROBILINOGEN 0.2 MG/DL (0.2-1.0)
[2017-05-01 15:54] LABS: ALKALINE PHOSPHATASE 108 IU/L (3-129)
[2017-05-01 15:57] LABS: DIRECT BILIRUBIN 0.4 mg/dL (0.0-0.3)
[2017-05-01 15:58] LABS: LIPASE 15 U/L (1.0-51.0)
[2017-05-01 16:04] LABS: BACTERIA NONE SEEN /HPF; EPITHELIAL CELLS NONE SEEN /HPF; HYALINE CASTS 20-30 /LPF; MUCUS TRACE /LPF; RED BLOOD CELLS 0-5 /HPF (0-5)
[2017-05-01] MEDS ORDERED: VANTIN100 MG PO (16:22)
[2017-05-01 18:37] VITALS: BP 133/83
== END 2017-05-01 18:57 | disposition home or self-care (01) ==
LOC: EME 13:29
PROVIDERS: Physician Assistant
DX: N39.0 Urinary tract infection, site not specified (principal); Z86.73 Personal history of transient ischemic attack (TIA), and cerebral infarction without residual deficits; E11.9 Type 2 diabetes mellitus without complications; E78.5 Hyperlipidemia, unspecified; I10 Essential (primary) hypertension; I25.2 Old myocardial infarction; Z87.442 Personal history of urinary calculi; Z87.891 Personal history of nicotine dependence; Z98.61 Coronary angioplasty status
CPT/HCPCS: 71020; 74176; 80048; 80076; 81003; 83690; 84484; 85027; 93005; 99281; 99285; J0696; J7030; J7050

== ENCOUNTER 2017-07-16 18:09 | Emergency (ER) | payer OTHER, BC ==
[~2017-07-16] VITALS: Ht 162.6 cm; Wt 72.0 kg
[~2017-07-16 18:09] MED LIST changes: +VANTIN100 MG PO
[2017-07-16 22:14] VITALS: BP 156/83
== END 2017-07-16 22:14 | disposition home or self-care (01) ==
LOC: RME 18:09 → EME 18:09 → RME 22:14
PROC: 3E0234Z Introduction of Serum, Toxoid and Vaccine into Muscle, Percutaneous Approach (ICD-10-PCS; principal; 2017-07-16)
DX: S41.112A Laceration without foreign body of left upper arm, initial encounter (principal); W01.118A Fall on same level from slipping, tripping and stumbling with subsequent striking against other sharp object, initial encounter; W31.89XA Contact with other specified machinery, initial encounter; Y93.01 Activity, walking, marching and hiking; Y92.000 Kitchen of unspecified non-institutional (private) residence as the place of occurrence of the external cause; Z87.442 Personal history of urinary calculi; I25.2 Old myocardial infarction; I12.9 Hypertensive chronic kidney disease with stage 1 through stage 4 chronic kidney disease, or unspecified chronic kidney disease; N18.9 Chronic kidney disease, unspecified; E11.22 Type 2 diabetes mellitus with diabetic chronic kidney disease; E78.5 Hyperlipidemia, unspecified; Z86.73 Personal history of transient ischemic attack (TIA), and cerebral infarction without residual deficits; M10.9 Gout, unspecified; Z98.61 Coronary angioplasty status; Z87.891 Personal history of nicotine dependence; Z85.46 Personal history of malignant neoplasm of prostate
CPT/HCPCS: 70450; 73060; 73090; 99281; 99284

== ENCOUNTER 2017-08-02 15:12 | Inpatient (IN) | payer OTHER, BC ==
[~2017-08-02] VITALS: Ht 162.6 cm; Wt 72.7 kg
[2017-08-02 16:49] LABS: ADD MIUA? YES; BILIRUBIN NEGATIVE; BLOOD MODERATE; COLOR YELLOW ((YELLOW)); GLUCOSE (STRIP) NEGATIVE; KETONES NEGATIVE; LEUKOCYTES NEGATIVE; NITRITE NEGATIVE; PROTEIN (STRIP) NEGATIVE; SPECIFIC GRAVITY 1.013 (1.000-1.030); UROBILINOGEN 0.2 MG/DL (0.2-1.0)
[2017-08-02 16:54] LABS: BACTERIA RARE /HPF; EPITHELIAL CELLS RARE /HPF; HYALINE CASTS 20-30 /LPF; MUCUS TRACE /LPF; RED BLOOD CELLS 0-5 /HPF (0-5); UCUL ADDED? NO; WHITE BLOOD CELLS 0-5 /HPF (0-5)
[2017-08-02 16:54] LABS: EOSINOPHIL (%) 0 % (0-5); HEMATOCRIT 35.3 % (38.0-50.0); IMMATURE GRANULOCYTE (%) 0.6 % (0.0-0.7); IMMATURE GRANULOCYTE COUNT 0.1 K/uL; INSTRUMENT ABS NEUTROPHIL CT 7.8 K/uL; LYMPHOCYTE COUNT 0.5 K/uL (1.0-2.8); MCH 30.1 PG (29.0-34.0); MCHC 33.7 G/DL (30.0-36.0); MCV 89.1 FL (86-99); MONOCYTE (%) 5.7 % (3-12); MONOCYTE COUNT 0.5 K/uL (0-0.8); NEUTROPHIL (%) 87.6 % (45-76); NEUTROPHIL COUNT 7.8 K/uL (1.8-6.4); PLATELET COUNT 106 K/uL (156-360); RBC DIS.WIDTH-CV 13.3 % (11.8-14.6); RBC DIS.WIDTH-SD 43.2 % (39-53); RED BLOOD COUNT 3.96 M/uL (4.00-5.50); WHITE BLOOD COUNT 8.9 K/uL (4.1-10.2)
[2017-08-02 17:05] LABS: CHLORIDE 104 mEq/L (99-109); POTASSIUM 4.3 mEq/L (3.7-5.4); SODIUM 138 mEq/L (136-147)
[2017-08-02 17:06] LABS: GLUCOSE 210 mg/dL (70-99)
[2017-08-02 17:08] LABS: ANION GAP 11 MEQ/L (2-14)
[2017-08-02 17:10] LABS: GFR ESTIMATE (CALCULATED) 21 mL/min/
[2017-08-02 17:11] LABS: UREA NITROGEN (BUN) 40 mg/dL (9-23)
[2017-08-02] MEDS ORDERED: ULTRAM50 MG PO (23:22)
[2017-08-02] MEDS ORDERED: NITROSTAT0.4 MG SL (23:23)
[2017-08-02] MEDS ORDERED: K-DUR20 MEQ PO (23:24)
[2017-08-02] MEDS ORDERED: PHENERGAN-CODE120 ML PO (23:26)
[2017-08-03] VITALS (8 sets, daily range): BP systolic 141–162; BP diastolic 69–79
[2017-08-03 01:01] LABS: TROP-I INTERPRETATION NEGATIVE; TROPONIN-I 0.08 ng/mL (0.0-0.30)
[2017-08-03 08:50] LABS: ANION GAP 9 MEQ/L (2-14); CHLORIDE 105 MEQ/L (99-109); GFR ESTIMATE (CALCULATED) 26 mL/min/; POTASSIUM 3.7 MEQ/L (3.7-5.4); SAMPLE HEMOLYSIS CHECK 0; SAMPLE ICTERIC CHECK 0; SAMPLE LIPEMIA CHECK 0; SODIUM 139 MEQ/L (136-147); UREA NITROGEN (BUN) 35 mg/dL (9-23)
[2017-08-03 08:55] LABS: GLUCOSE 97 mg/dL (70-99)
[2017-08-04 03:41] VITALS: BP 150/60
[2017-08-04 07:15] VITALS: BP 186/90
[2017-08-04 07:30] LABS: EOSINOPHIL (%) 0.7 % (0-5); HEMATOCRIT 33.7 % (38.0-50.0); IMMATURE GRANULOCYTE (%) 0.7 % (0.0-0.7); INSTRUMENT ABS NEUTROPHIL CT 4.4 K/uL; LYMPHOCYTE COUNT 0.6 K/uL (1.0-2.8); MCHC 33.5 G/DL (30.0-36.0); MCV 89.4 FL (86-99); MEAN PLAT.VOLUME 10.8 uM^3 (9.0-12.4); MONOCYTE (%) 6.7 % (3-12); MONOCYTE COUNT 0.4 K/uL (0-0.8); NEUTROPHIL (%) 81.7 % (45-76); NEUTROPHIL COUNT 4.4 K/uL (1.8-6.4); PLATELET COUNT 101 K/uL (156-360); RBC DIS.WIDTH-CV 13.3 % (11.8-14.6); RBC DIS.WIDTH-SD 43.6 % (39-53); RED BLOOD COUNT 3.77 M/uL (4.00-5.50); WHITE BLOOD COUNT 5.4 K/uL (4.1-10.2)
[2017-08-04 07:57] LABS: ANION GAP 11 MEQ/L (2-14); CHLORIDE 105 MEQ/L (99-109); GFR ESTIMATE (CALCULATED) 29 mL/min/; GLUCOSE 114 mg/dL (70-99); POTASSIUM 3.7 MEQ/L (3.7-5.4); SAMPLE HEMOLYSIS CHECK 0; SAMPLE ICTERIC CHECK 0; SAMPLE LIPEMIA CHECK 0; SODIUM 139 MEQ/L (136-147); UREA NITROGEN (BUN) 39 mg/dL (9-23)
[2017-08-04 11:39] VITALS: BP 118/59
[2017-08-04 11:57] VITALS: BP 179/75
[2017-08-04 16:05] VITALS: BP 174/80
[2017-08-04 19:29] VITALS: BP 164/72
[2017-08-05 00:19] VITALS: BP 147/68
[2017-08-05 03:54] VITALS: BP 145/74
[2017-08-05 07:35] VITALS: BP 172/81
[2017-08-05 11:37] LABS: EOSINOPHIL (%) 0.6 % (0-5); HEMATOCRIT 33.5 % (38.0-50.0); IMMATURE GRANULOCYTE (%) 1.2 % (0.0-0.7); IMMATURE GRANULOCYTE COUNT 0.1 K/uL; INSTRUMENT ABS NEUTROPHIL CT 4.1 K/uL; LYMPHOCYTE COUNT 0.5 K/uL (1.0-2.8); MCH 29.9 PG (29.0-34.0); MCHC 33.4 G/DL (30.0-36.0); MCV 89.6 FL (86-99); MEAN PLAT.VOLUME 10.7 uM^3 (9.0-12.4); MONOCYTE (%) 7.6 % (3-12); MONOCYTE COUNT 0.4 K/uL (0-0.8); NEUTROPHIL (%) 80.2 % (45-76); NEUTROPHIL COUNT 4.1 K/uL (1.8-6.4); PLATELET COUNT 111 K/uL (156-360); RBC DIS.WIDTH-CV 13.2 % (11.8-14.6); RED BLOOD COUNT 3.74 M/uL (4.00-5.50); WHITE BLOOD COUNT 5.1 K/uL (4.1-10.2)
[2017-08-05 12:11] LABS: ANION GAP 10 MEQ/L (2-14); CHLORIDE 105 MEQ/L (99-109); GFR ESTIMATE (CALCULATED) 28 mL/min/; GLUCOSE 166 mg/dL (70-99); POTASSIUM 3.8 MEQ/L (3.7-5.4); SAMPLE HEMOLYSIS CHECK 0; SAMPLE ICTERIC CHECK 0; SAMPLE LIPEMIA CHECK 0; SODIUM 138 MEQ/L (136-147); UREA NITROGEN (BUN) 43 mg/dL (9-23)
[2017-08-05 14:04] LABS: ADD MIUA? YES; BILIRUBIN NEGATIVE; BLOOD SMALL; COLOR YELLOW ((YELLOW)); GLUCOSE (STRIP) NEGATIVE; KETONES NEGATIVE; LEUKOCYTES NEGATIVE; NITRITE NEGATIVE; PROTEIN (STRIP) NEGATIVE; SPECIFIC GRAVITY 1.011 (1.000-1.030); UROBILINOGEN 0.2 MG/DL (0.2-1.0)
[2017-08-05 14:10] VITALS: BP 162/80
[2017-08-05 14:21] LABS: BACTERIA NONE SEEN /HPF; EPITHELIAL CELLS RARE /HPF; MUCUS TRACE /LPF; RED BLOOD CELLS 0-5 /HPF (0-5); WHITE BLOOD CELLS 0-5 /HPF (0-5)
[2017-08-05 20:40] VITALS: BP 145/78
[2017-08-06] VITALS: BP 132/78
[2017-08-06 04:00] VITALS: BP 142/74
[2017-08-06 06:06] LABS: EOSINOPHIL (%) 0.4 % (0-5); HEMATOCRIT 34.4 % (38.0-50.0); IMMATURE GRANULOCYTE (%) 1.1 % (0.0-0.7); IMMATURE GRANULOCYTE COUNT 0.1 K/uL; INSTRUMENT ABS NEUTROPHIL CT 4.7 K/uL; LYMPHOCYTE COUNT 0.5 K/uL (1.0-2.8); MCH 30.5 PG (29.0-34.0); MCV 89.6 FL (86-99); MEAN PLAT.VOLUME 11.1 uM^3 (9.0-12.4); MONOCYTE (%) 6.1 % (3-12); MONOCYTE COUNT 0.3 K/uL (0-0.8); NEUTROPHIL (%) 84.4 % (45-76); NEUTROPHIL COUNT 4.7 K/uL (1.8-6.4); PLATELET COUNT 113 K/uL (156-360); RBC DIS.WIDTH-CV 13.2 % (11.8-14.6); RBC DIS.WIDTH-SD 43.1 % (39-53); RED BLOOD COUNT 3.84 M/uL (4.00-5.50); WHITE BLOOD COUNT 5.6 K/uL (4.1-10.2)
[2017-08-06 06:41] LABS: ANION GAP 12 MEQ/L (2-14); CHLORIDE 107 MEQ/L (99-109); GFR ESTIMATE (CALCULATED) 26 mL/min/; GLUCOSE 139 mg/dL (70-99); SAMPLE HEMOLYSIS CHECK 0; SAMPLE ICTERIC CHECK 0; SAMPLE LIPEMIA CHECK 0; SODIUM 143 MEQ/L (136-147); UREA NITROGEN (BUN) 44 mg/dL (9-23)
[2017-08-06 06:46] LABS: POTASSIUM 4.7 MEQ/L (3.7-5.4)
[2017-08-06 12:04] VITALS: BP 173/84
[2017-08-06 16:27] VITALS: BP 129/68
[2017-08-06 19:49] LABS: POINT-OF-CARE METER ID UU13113774
[2017-08-06 20:15] VITALS: BP 162/74
[2017-08-07 00:15] VITALS: BP 166/78
[2017-08-07 06:34] LABS: EOSINOPHIL (%) 2.2 % (0-5); EOSINOPHIL COUNT 0.1 K/uL (0-0.3); HEMATOCRIT 33.8 % (38.0-50.0); IMMATURE GRANULOCYTE (%) 1.3 % (0.0-0.7); IMMATURE GRANULOCYTE COUNT 0.1 K/uL; INSTRUMENT ABS NEUTROPHIL CT 3.2 K/uL; LYMPHOCYTE COUNT 0.7 K/uL (1.0-2.8); MCH 29.8 PG (29.0-34.0); MCHC 32.8 G/DL (30.0-36.0); MCV 90.9 FL (86-99); MEAN PLAT.VOLUME 10.9 uM^3 (9.0-12.4); MONOCYTE (%) 7.6 % (3-12); MONOCYTE COUNT 0.3 K/uL (0-0.8); NEUTROPHIL COUNT 3.2 K/uL (1.8-6.4); PLATELET COUNT 92 K/uL (156-360); RBC DIS.WIDTH-CV 13.3 % (11.8-14.6); RBC DIS.WIDTH-SD 44.1 % (39-53); RED BLOOD COUNT 3.72 M/uL (4.00-5.50); WHITE BLOOD COUNT 4.5 K/uL (4.1-10.2)
[2017-08-07 06:50] VITALS: BP 189/86
[2017-08-07 06:58] LABS: ANION GAP 8 MEQ/L (2-14); CHLORIDE 111 MEQ/L (99-109); GFR ESTIMATE (CALCULATED) 29 mL/min/; GLUCOSE 90 mg/dL (70-99); SAMPLE HEMOLYSIS CHECK 0; SAMPLE ICTERIC CHECK 0; SAMPLE LIPEMIA CHECK 0; SODIUM 141 MEQ/L (136-147); UREA NITROGEN (BUN) 38 mg/dL (9-23)
[2017-08-07 15:05] VITALS: BP 164/79
[2017-08-08 00:19] VITALS: BP 174/80
[2017-08-08 06:41] LABS: EOSINOPHIL (%) 0.9 % (0-5); EOSINOPHIL COUNT 0.1 K/uL (0-0.3); HEMATOCRIT 34.1 % (38.0-50.0); IMMATURE GRANULOCYTE (%) 0.9 % (0.0-0.7); IMMATURE GRANULOCYTE COUNT 0.1 K/uL; INSTRUMENT ABS NEUTROPHIL CT 5.4 K/uL; LYMPHOCYTE COUNT 0.6 K/uL (1.0-2.8); MCH 30.5 PG (29.0-34.0); MCHC 33.1 G/DL (30.0-36.0); MCV 92.2 FL (86-99); MEAN PLAT.VOLUME 11.1 uM^3 (9.0-12.4); MONOCYTE (%) 5.8 % (3-12); MONOCYTE COUNT 0.4 K/uL (0-0.8); NEUTROPHIL (%) 82.5 % (45-76); NEUTROPHIL COUNT 5.4 K/uL (1.8-6.4); PLATELET COUNT 106 K/uL (156-360); RBC DIS.WIDTH-CV 13.6 % (11.8-14.6); RBC DIS.WIDTH-SD 45.7 % (39-53); WHITE BLOOD COUNT 6.6 K/uL (4.1-10.2)
[2017-08-08 07:07] LABS: ANION GAP 8 MEQ/L (2-14); CHLORIDE 111 MEQ/L (99-109); GFR ESTIMATE (CALCULATED) 32 mL/min/; GLUCOSE 132 mg/dL (70-99); POTASSIUM 4.5 MEQ/L (3.7-5.4); SAMPLE HEMOLYSIS CHECK 0; SAMPLE ICTERIC CHECK 0; SAMPLE LIPEMIA CHECK 0; SODIUM 141 MEQ/L (136-147); UREA NITROGEN (BUN) 36 mg/dL (9-23)
[2017-08-08 07:34] VITALS: BP 173/80
[2017-08-08 13:56] VITALS: BP 166/86
[2017-08-08 15:29] VITALS: BP 167/78
[2017-08-08 23:52] VITALS: BP 178/92
[2017-08-09 06:46] LABS: EOSINOPHIL (%) 0 % (0-5); HEMATOCRIT 35.1 % (38.0-50.0); IMMATURE GRANULOCYTE (%) 0.8 % (0.0-0.7); IMMATURE GRANULOCYTE COUNT 0.1 K/uL; INSTRUMENT ABS NEUTROPHIL CT 7.9 K/uL; LYMPHOCYTE COUNT 0.5 K/uL (1.0-2.8); MCHC 34.2 G/DL (30.0-36.0); MCV 90.7 FL (86-99); MEAN PLAT.VOLUME 11.3 uM^3 (9.0-12.4); MONOCYTE (%) 1.4 % (3-12); MONOCYTE COUNT 0.1 K/uL (0-0.8); NEUTROPHIL (%) 92.5 % (45-76); NEUTROPHIL COUNT 7.9 K/uL (1.8-6.4); PLATELET COUNT 121 K/uL (156-360); RBC DIS.WIDTH-CV 13.6 % (11.8-14.6); RBC DIS.WIDTH-SD 44.6 % (39-53); RED BLOOD COUNT 3.87 M/uL (4.00-5.50); WHITE BLOOD COUNT 8.5 K/uL (4.1-10.2)
[2017-08-09 07:19] LABS: ANION GAP 11 MEQ/L (2-14); CHLORIDE 109 MEQ/L (99-109); GFR ESTIMATE (CALCULATED) 26 mL/min/; GLUCOSE 162 mg/dL (70-99); POTASSIUM 4.7 MEQ/L (3.7-5.4); SAMPLE HEMOLYSIS CHECK 0; SAMPLE ICTERIC CHECK 0; SAMPLE LIPEMIA CHECK 0; SODIUM 141 MEQ/L (136-147); UREA NITROGEN (BUN) 42 mg/dL (9-23)
[2017-08-09 08:20] VITALS: BP 166/75
[2017-08-09 15:52] VITALS: BP 148/82
[2017-08-09 23:33] VITALS: BP 141/70
[2017-08-10 07:01] LABS: ANION GAP 10 MEQ/L (2-14); CHLORIDE 110 MEQ/L (99-109); GFR ESTIMATE (CALCULATED) 28 mL/min/; POTASSIUM 3.9 MEQ/L (3.7-5.4); SAMPLE HEMOLYSIS CHECK 0; SAMPLE ICTERIC CHECK 0; SAMPLE LIPEMIA CHECK 0; SODIUM 143 MEQ/L (136-147); UREA NITROGEN (BUN) 44 mg/dL (9-23)
[2017-08-10 07:08] LABS: GLUCOSE 114 mg/dL (70-99)
[2017-08-10 07:45] VITALS: BP 172/81
[2017-08-10 15:59] VITALS: BP 170/80
[2017-08-10 17:23] VITALS: BP 145/86
== END 2017-08-10 17:37 | DRG 871 ==
LOC: EME 15:12 → 2EAST 22:47 → EDOF 22:47 → ENRESERV 22:48 → 2EAST 08-03 00:31 → ENRESERV 08-05 08:32 → 2EAST 08-05 09:18 → ENRESERV 08-05 17:39 → 5EAST 08-05 20:42
PROVIDERS: Hospitalist
DX: R78.81 Bacteremia (principal); L03.114 Cellulitis of left upper limb; I48.0 Paroxysmal atrial fibrillation; E11.22 Type 2 diabetes mellitus with diabetic chronic kidney disease; E11.8 Type 2 diabetes mellitus with unspecified complications; N18.4 Chronic kidney disease, stage 4 (severe); I48.2 Chronic atrial fibrillation; J44.9 Chronic obstructive pulmonary disease, unspecified; G92 Toxic encephalopathy; I13.0 Hypertensive heart and chronic kidney disease with heart failure and stage 1 through stage 4 chronic kidney disease, or unspecified chronic kidney disease; I50.23 Acute on chronic systolic (congestive) heart failure; I25.10 Atherosclerotic heart disease of native coronary artery without angina pectoris; N40.0 Benign prostatic hyperplasia without lower urinary tract symptoms; J90 Pleural effusion, not elsewhere classified; S09.90XA Unspecified injury of head, initial encounter; K74.60 Unspecified cirrhosis of liver; I42.9 Cardiomyopathy, unspecified; W06.XXXA Fall from bed, initial encounter; B96.89 Other specified bacterial agents as the cause of diseases classified elsewhere; R09.02 Hypoxemia; F03.90 Unspecified dementia, unspecified severity, without behavioral disturbance, psychotic disturbance, mood disturbance, and anxiety; D69.59 Other secondary thrombocytopenia; M10.9 Gout, unspecified; R29.6 Repeated falls; Z87.891 Personal history of nicotine dependence; E78.5 Hyperlipidemia, unspecified; Z85.46 Personal history of malignant neoplasm of prostate; Z91.81 History of falling; I25.2 Old myocardial infarction; Z95.5 Presence of coronary angioplasty implant and graft; Z90.79 Acquired absence of other genital organ(s); Z87.442 Personal history of urinary calculi; Z86.73 Personal history of transient ischemic attack (TIA), and cerebral infarction without residual deficits; Z82.49 Family history of ischemic heart disease and other diseases of the circulatory system
CPT/HCPCS: 70450; 71010; 71020; 71250; 73110; 74176; 80048; 80202; 81003; 82948; 83605; 83880; 84484; 85025; 87040; 87077; 87086; 87186; 87801; 90686; 93005; 93306; 94640; 94640 76; 94760; 94799; 97530 GO; 97530 GP; 99202; 99281; 99285; J0360; J0692; J0696; J1940; J2060; J2920; J3370; J7030; J7050

== ENCOUNTER 2017-09-20 13:24 | Emergency (ER) | payer OTHER, BC ==
[~2017-09-20] VITALS: Ht 162.6 cm; Wt 81.1 kg
[~2017-09-20 13:24] MED LIST changes: +K-DUR20 MEQ PO; +ULTRAM50 MG PO
[2017-09-20 14:13] LABS: HEMATOCRIT 32.3 % (38.0-50.0); MCH 30.5 PG (29.0-34.0); MCHC 32.2 G/DL (30.0-36.0); MCV 94.7 FL (86-99); MEAN PLAT.VOLUME 10.4 uM^3 (9.0-12.4); PLATELET COUNT 85 K/uL (156-360); RBC DIS.WIDTH-CV 14.4 % (11.8-14.6); RBC DIS.WIDTH-SD 49.7 % (39-53); RED BLOOD COUNT 3.41 M/uL (4.00-5.50); WHITE BLOOD COUNT 3.6 K/uL (4.1-10.2)
[2017-09-20 14:21] LABS: CHLORIDE 99 mEq/L (99-109); POTASSIUM 3.4 mEq/L (3.7-5.4); SODIUM 138 mEq/L (136-147)
[2017-09-20 14:23] LABS: GLUCOSE 170 mg/dL (70-99)
[2017-09-20 14:24] LABS: ANION GAP 7 MEQ/L (2-14)
[2017-09-20 14:26] LABS: SERUM ETHYL ALCOHOL < 10 mg/dL
[2017-09-20 14:27] LABS: GFR ESTIMATE (CALCULATED) 26 mL/min/
[2017-09-20 14:28] LABS: UREA NITROGEN (BUN) 39 mg/dL (9-23)
[2017-09-20 15:17] LABS: ADD MIUA? NO; BILIRUBIN NEGATIVE; BLOOD NEGATIVE; COLOR YELLOW ((YELLOW)); GLUCOSE (STRIP) NEGATIVE; KETONES NEGATIVE; LEUKOCYTES NEGATIVE; NITRITE NEGATIVE; PROTEIN (STRIP) NEGATIVE; SPECIFIC GRAVITY 1.011 (1.000-1.030); UCUL ADDED? NO; UROBILINOGEN 0.2 MG/DL (0.2-1.0)
[2017-09-20 15:30] LABS: AMPHETAMINE NEGATIVE (500 ng/mL); BARBITURATES NEGATIVE (200 ng/mL); BENZODIAZEPINES NEGATIVE (150 ng/mL); COCAINE NEGATIVE (150 ng/mL); METHADONE NEGATIVE (200 ng/mL); METHAMPHETAMINE NEGATIVE (500 ng/mL); OPIATES (MORPHINE) NEGATIVE (100 ng/mL); PHENCYCLIDINE NEGATIVE (25 ng/mL); THC CANNABINOIDS NEGATIVE (50 ng/mL); TRICYCLIC ANTIDEPRESSANTS NEGATIVE (300 ng/mL)
[2017-09-20 15:31] LABS: INTERNAL CONTROLS VALID? YES; OXYCODONE NEGATIVE (100 ng/mL); PROPOXYPHENE NEGATIVE (300 ng/mL)
[2017-09-20 17:35] VITALS: BP 139/61
== END 2017-09-20 17:40 ==
LOC: EME 13:24
PROVIDERS: Emergency Medicine
DX: F32.9 Major depressive disorder, single episode, unspecified (principal); E78.5 Hyperlipidemia, unspecified; E11.9 Type 2 diabetes mellitus without complications; I10 Essential (primary) hypertension; F41.9 Anxiety disorder, unspecified; I25.2 Old myocardial infarction; Z95.5 Presence of coronary angioplasty implant and graft; Z86.73 Personal history of transient ischemic attack (TIA), and cerebral infarction without residual deficits; Z87.442 Personal history of urinary calculi; Z87.891 Personal history of nicotine dependence
CPT/HCPCS: 71020; 80048; 81003; 85027; 87086; 99281; 99284; G0480

== ENCOUNTER 2017-10-18 14:53 | Inpatient (IN) | payer OTHER, BC ==
[~2017-10-18] VITALS: Ht 165.1 cm; Wt 79.4 kg
[2017-10-18 15:41] LABS: EOSINOPHIL (%) 0.9 % (0-5); HEMATOCRIT 29.2 % (38.0-50.0); IMMATURE GRANULOCYTE (%) 0.7 % (0.0-0.7); INSTRUMENT ABS NEUTROPHIL CT 3.7 K/uL; LYMPHOCYTE COUNT 0.5 K/uL (1.0-2.8); MCH 30.8 PG (29.0-34.0); MCHC 32.2 G/DL (30.0-36.0); MCV 95.7 FL (86-99); MEAN PLAT.VOLUME 10.5 uM^3 (9.0-12.4); MONOCYTE (%) 5.5 % (3-12); MONOCYTE COUNT 0.3 K/uL (0-0.8); NEUTROPHIL (%) 81.4 % (45-76); NEUTROPHIL COUNT 3.7 K/uL (1.8-6.4); PLATELET COUNT 112 K/uL (156-360); RBC DIS.WIDTH-CV 14.4 % (11.8-14.6); RBC DIS.WIDTH-SD 50.8 % (39-53); RED BLOOD COUNT 3.05 M/uL (4.00-5.50); WHITE BLOOD COUNT 4.5 K/uL (4.1-10.2)
[2017-10-18 15:51] LABS: CHLORIDE 113 mEq/L (99-109); POTASSIUM 4.3 mEq/L (3.7-5.4); SODIUM 149 mEq/L (136-147)
[2017-10-18 15:53] LABS: GLUCOSE 95 mg/dL (70-99)
[2017-10-18 15:54] LABS: ANION GAP 11 MEQ/L (2-14)
[2017-10-18 15:55] LABS: TOTAL BILIRUBIN 1.2 mg/dL (0.0-1.0)
[2017-10-18 15:56] LABS: ALKALINE PHOSPHATASE 84 IU/L (3-129)
[2017-10-18 15:57] LABS: GFR ESTIMATE (CALCULATED) 10 mL/min/ (58.99-99999)
[2017-10-18 15:58] LABS: UREA NITROGEN (BUN) 84 mg/dL (9-23)
[2017-10-18 16:40] LABS: ADD MIUA? YES; BILIRUBIN NEGATIVE; BLOOD NEGATIVE; COLOR YELLOW ((YELLOW)); GLUCOSE (STRIP) NEGATIVE; KETONES NEGATIVE; LEUKOCYTES TRACE; NITRITE NEGATIVE; PROTEIN (STRIP) NEGATIVE; SPECIFIC GRAVITY 1.011 (1.000-1.030); UROBILINOGEN 0.2 MG/DL (0.2-1.0)
[2017-10-18 16:48] LABS: BACTERIA NONE SEEN /HPF; BUDDING YEAST 2+; EPITHELIAL CELLS NONE SEEN /HPF; HYALINE CASTS 0-5 /LPF; MUCUS TRACE /LPF; RED BLOOD CELLS 0-5 /HPF (0-5); UCUL ADDED? YES
[2017-10-18] MEDS ORDERED: SERTRALINE HCL50 MG PO (17:45)
[2017-10-18] MEDS ORDERED: TRAMADOL HCL50 MG PO (17:47)
[2017-10-18] MEDS ORDERED: METOPROLOL TART25 MG PO (17:50)
[2017-10-18] MEDS ORDERED: LASIX40 MG PO (17:58)
[2017-10-18] MEDS ORDERED: VITAMIN D35000 UNIT PO (18:00)
[2017-10-18 21:32] VITALS: BP 115/78
[2017-10-18 22:24] LABS: POINT-OF-CARE METER ID UU13113725
[2017-10-19 00:04] VITALS: BP 116/56
[2017-10-19 01:45] LABS: POINT-OF-CARE METER ID UU13113725
[2017-10-19 01:59] LABS: CHLORIDE 112 mEq/L (99-109); POTASSIUM 4.5 mEq/L (3.7-5.4); SODIUM 148 mEq/L (136-147)
[2017-10-19 02:01] LABS: GLUCOSE 78 mg/dL (70-99)
[2017-10-19 02:02] LABS: ANION GAP 14 MEQ/L (2-14)
[2017-10-19 02:03] LABS: TOTAL BILIRUBIN 1.2 mg/dL (0.0-1.0)
[2017-10-19 02:05] LABS: ALKALINE PHOSPHATASE 84 IU/L (3-129); GFR ESTIMATE (CALCULATED) 10 mL/min/ (58.99-99999)
[2017-10-19 02:06] LABS: UREA NITROGEN (BUN) 86 mg/dL (9-23)
[2017-10-19 02:07] LABS: DIRECT BILIRUBIN 0.7 mg/dL (0.0-0.3)
[2017-10-19 05:46] LABS: POINT-OF-CARE METER ID UU13113725
[2017-10-19 06:04] LABS: HEMATOCRIT 27.1 % (38.0-50.0); MCH 30.5 PG (29.0-34.0); MCHC 31.4 G/DL (30.0-36.0); MCV 97.1 FL (86-99); MEAN PLAT.VOLUME 10.6 uM^3 (9.0-12.4); PLATELET COUNT 103 K/uL (156-360); RBC DIS.WIDTH-CV 14.5 % (11.8-14.6); RBC DIS.WIDTH-SD 51.8 % (39-53); RED BLOOD COUNT 2.79 M/uL (4.00-5.50); WHITE BLOOD COUNT 4.5 K/uL (4.1-10.2)
[2017-10-19 06:27] LABS: ANION GAP 12 MEQ/L (2-14); CHLORIDE 115 MEQ/L (99-109); POTASSIUM 4.2 MEQ/L (3.7-5.4); SAMPLE HEMOLYSIS CHECK 0; SAMPLE ICTERIC CHECK 0; SAMPLE LIPEMIA CHECK 0; SODIUM 151 MEQ/L (136-147)
[2017-10-19 06:33] LABS: GFR ESTIMATE (CALCULATED) 11 mL/min/ (58.99-99999); GLUCOSE 69 mg/dL (70-99); UREA NITROGEN (BUN) 84 mg/dL (9-23)
[2017-10-19 08:58] VITALS: BP 127/68
[2017-10-19 11:00] VITALS: BP 131/73
[2017-10-19] MEDS ORDERED: LEVO-T112 MCG PO (11:33)
[2017-10-19] MEDS ORDERED: LISINOPRIL20 MG PO (11:34)
[2017-10-19 12:05] LABS: ADD MIUA? YES; BILIRUBIN NEGATIVE; BLOOD SMALL; COLOR YELLOW ((YELLOW)); GLUCOSE (STRIP) NEGATIVE; KETONES NEGATIVE; LEUKOCYTES SMALL; NITRITE NEGATIVE; PROTEIN (STRIP) NEGATIVE; SPECIFIC GRAVITY 1.011 (1.000-1.030); UROBILINOGEN 0.2 MG/DL (0.2-1.0)
[2017-10-19 12:21] LABS: POINT-OF-CARE METER ID UU13113725
[2017-10-19 12:32] LABS: BACTERIA RARE /HPF; BUDDING YEAST 2+; EPITHELIAL CELLS RARE /HPF; MUCUS TRACE /LPF; RED BLOOD CELLS 20-30 /HPF (0-5); WHITE BLOOD CELLS 40-50 /HPF (0-5)
[2017-10-19 12:50] LABS: BASE EXCESS -2.1 mEq/L (-3 to +3); BICARBONATE 23.7 mEq/L (22-26); CARBOXY HGB 1.6 % (0-5); METHEMOGLOBIN 1.1 % (0-1.5); PCO2 44 mm Hg (35-45); PO2 113 mm Hg (80-100); SITE LR
[2017-10-19 12:51] LABS: COMMENTS - BLOOD GASES C+A+; DEVICE NRBM; O2 FLOW 15 L/MIN; pH 7.34 (7.35-7.45)
[2017-10-19 13:05] LABS: POINT-OF-CARE METER ID UU13113725
[2017-10-19 13:15] LABS: POINT-OF-CARE METER ID UU13113725
[2017-10-19 13:32] LABS: ANION GAP 12 MEQ/L (2-14); CHLORIDE 113 MEQ/L (99-109); GFR ESTIMATE (CALCULATED) 12 mL/min/ (58.99-99999); POTASSIUM 4.2 MEQ/L (3.7-5.4); SAMPLE HEMOLYSIS CHECK 0; SAMPLE ICTERIC CHECK 0; SAMPLE LIPEMIA CHECK 0; SODIUM 149 MEQ/L (136-147); UREA NITROGEN (BUN) 81 mg/dL (9-23)
[2017-10-19 13:35] LABS: GLUCOSE 228 mg/dL (70-99)
[2017-10-19 14:00] LABS: EOSINOPHIL (%) 0.5 % (0-5); HEMATOCRIT 29.1 % (38.0-50.0); IMMATURE GRANULOCYTE (%) 0.6 % (0.0-0.7); INSTRUMENT ABS NEUTROPHIL CT 5.7 K/uL; LYMPHOCYTE COUNT 0.5 K/uL (1.0-2.8); MCH 30.2 PG (29.0-34.0); MCHC 30.9 G/DL (30.0-36.0); MCV 97.7 FL (86-99); MEAN PLAT.VOLUME 10.3 uM^3 (9.0-12.4); MONOCYTE COUNT 0.3 K/uL (0-0.8); NEUTROPHIL (%) 87.5 % (45-76); NEUTROPHIL COUNT 5.7 K/uL (1.8-6.4); PLATELET COUNT 119 K/uL (156-360); RBC DIS.WIDTH-CV 14.6 % (11.8-14.6); RBC DIS.WIDTH-SD 52.8 % (39-53); RED BLOOD COUNT 2.98 M/uL (4.00-5.50); WHITE BLOOD COUNT 6.5 K/uL (4.1-10.2)
[2017-10-19 15:00] VITALS: BP 134/61
[2017-10-19 16:42] LABS: POINT-OF-CARE METER ID UU13113725
[2017-10-19 17:14] LABS: ANION GAP 10 MEQ/L (2-14); CHLORIDE 114 MEQ/L (99-109); GFR ESTIMATE (CALCULATED) 11 mL/min/ (58.99-99999); POTASSIUM 3.9 MEQ/L (3.7-5.4); SAMPLE HEMOLYSIS CHECK 0; SAMPLE ICTERIC CHECK 0; SAMPLE LIPEMIA CHECK 0; SODIUM 149 MEQ/L (136-147); UREA NITROGEN (BUN) 82 mg/dL (9-23)
[2017-10-19 17:15] LABS: GLUCOSE 116 mg/dL (70-99)
[2017-10-19 19:43] VITALS: BP 169/84
[2017-10-19 21:36] LABS: POINT-OF-CARE METER ID UU13113774
[2017-10-20 01:11] VITALS: BP 162/84
[2017-10-20 04:00] VITALS: BP 149/82
[2017-10-20 05:52] LABS: POINT-OF-CARE METER ID UU13113725
[2017-10-20 06:26] LABS: EOSINOPHIL (%) 0.4 % (0-5); HEMATOCRIT 28.5 % (38.0-50.0); IMMATURE GRANULOCYTE (%) 0.9 % (0.0-0.7); IMMATURE GRANULOCYTE COUNT 0.1 K/uL; INSTRUMENT ABS NEUTROPHIL CT 4.7 K/uL; LYMPHOCYTE COUNT 0.5 K/uL (1.0-2.8); MCH 30.9 PG (29.0-34.0); MCHC 31.6 G/DL (30.0-36.0); MCV 97.9 FL (86-99); MEAN PLAT.VOLUME 10.9 uM^3 (9.0-12.4); MONOCYTE (%) 4.6 % (3-12); MONOCYTE COUNT 0.3 K/uL (0-0.8); NEUTROPHIL (%) 85.2 % (45-76); NEUTROPHIL COUNT 4.7 K/uL (1.8-6.4); PLATELET COUNT 105 K/uL (156-360); RBC DIS.WIDTH-CV 14.6 % (11.8-14.6); RBC DIS.WIDTH-SD 52.5 % (39-53); RED BLOOD COUNT 2.91 M/uL (4.00-5.50); WHITE BLOOD COUNT 5.5 K/uL (4.1-10.2)
[2017-10-20 06:56] LABS: ANION GAP 11 MEQ/L (2-14); CHLORIDE 114 MEQ/L (99-109); GFR ESTIMATE (CALCULATED) 11 mL/min/ (58.99-99999); GLUCOSE 101 mg/dL (70-99); POTASSIUM 4.1 MEQ/L (3.7-5.4); SAMPLE HEMOLYSIS CHECK 0; SAMPLE ICTERIC CHECK 0; SAMPLE LIPEMIA CHECK 0; SODIUM 152 MEQ/L (136-147); UREA NITROGEN (BUN) 82 mg/dL (9-23)
[2017-10-20 06:59] VITALS: BP 144/64
[2017-10-20 11:33] VITALS: BP 124/68
[2017-10-20 11:56] LABS: POINT-OF-CARE METER ID UU13113725
[2017-10-20 15:30] VITALS: BP 144/66
[2017-10-20 16:37] LABS: POINT-OF-CARE METER ID UU13113725
[2017-10-20 20:14] VITALS: BP 165/79
[2017-10-20 22:40] LABS: POINT-OF-CARE METER ID UU13113725
[2017-10-21 00:06] VITALS: BP 172/86
[2017-10-21 00:22] VITALS: BP 140/70
[2017-10-21 03:51] VITALS: BP 136/65
[2017-10-21 05:38] LABS: POINT-OF-CARE METER ID UU13113725
[2017-10-21 05:47] LABS: EOSINOPHIL (%) 0 % (0-5); HEMATOCRIT 31.5 % (38.0-50.0); IMMATURE GRANULOCYTE (%) 1.1 % (0.0-0.7); IMMATURE GRANULOCYTE COUNT 0.1 K/uL; INSTRUMENT ABS NEUTROPHIL CT 5.1 K/uL; LYMPHOCYTE COUNT 0.2 K/uL (1.0-2.8); MCH 29.6 PG (29.0-34.0); MCHC 30.5 G/DL (30.0-36.0); MCV 97.2 FL (86-99); MEAN PLAT.VOLUME 10.8 uM^3 (9.0-12.4); MONOCYTE (%) 1.5 % (3-12); MONOCYTE COUNT 0.1 K/uL (0-0.8); NEUTROPHIL COUNT 5.1 K/uL (1.8-6.4); PLATELET COUNT 114 K/uL (156-360); RBC DIS.WIDTH-CV 14.6 % (11.8-14.6); RBC DIS.WIDTH-SD 52.4 % (39-53); RED BLOOD COUNT 3.24 M/uL (4.00-5.50); WHITE BLOOD COUNT 5.5 K/uL (4.1-10.2)
[2017-10-21 06:30] LABS: ANION GAP 13 MEQ/L (2-14); CHLORIDE 111 MEQ/L (99-109); GFR ESTIMATE (CALCULATED) 12 mL/min/ (58.99-99999); MAGNESIUM 1.9 mg/dl (1.3-2.7); POTASSIUM 3.9 MEQ/L (3.7-5.4); SAMPLE HEMOLYSIS CHECK 0; SAMPLE ICTERIC CHECK 0; SAMPLE LIPEMIA CHECK 0; SODIUM 149 MEQ/L (136-147); UREA NITROGEN (BUN) 74 mg/dL (9-23)
[2017-10-21 06:32] LABS: GLUCOSE 290 mg/dL (70-99)
[2017-10-21 07:03] VITALS: BP 141/70
[2017-10-21 11:19] VITALS: BP 162/79
[2017-10-21 11:34] LABS: POINT-OF-CARE METER ID UU13113725
[2017-10-21 15:01] VITALS: BP 139/80
[2017-10-21] MEDS ORDERED: MORPHINE S10 MG/5 ML PO (15:54)
[2017-10-21 16:38] LABS: POINT-OF-CARE METER ID UU13113725
== END 2017-10-21 15:56 | DRG 682 ==
LOC: EME 14:53 → EDOF 16:40 → 5EAST 16:40 → ENRESERV 16:46 → CANRESERV 16:46 → ENRESERV 19:03 → 5EAST 20:57
PROVIDERS: Hospitalist; Internal Medicine; Internal Medicine Nephrology; Physician Assistant
PROC: 5A0945Z Assistance with Respiratory Ventilation, 24-96 Consecutive Hours (ICD-10-PCS; principal; 2017-10-19)
DX: N17.0 Acute kidney failure with tubular necrosis (principal); J96.01 Acute respiratory failure with hypoxia; I50.23 Acute on chronic systolic (congestive) heart failure; N13.8 Other obstructive and reflux uropathy; J18.9 Pneumonia, unspecified organism; I48.0 Paroxysmal atrial fibrillation; N18.4 Chronic kidney disease, stage 4 (severe); J44.0 Chronic obstructive pulmonary disease with (acute) lower respiratory infection; I25.5 Ischemic cardiomyopathy; I48.2 Chronic atrial fibrillation; I42.0 Dilated cardiomyopathy; I25.10 Atherosclerotic heart disease of native coronary artery without angina pectoris; E11.22 Type 2 diabetes mellitus with diabetic chronic kidney disease; K92.2 Gastrointestinal hemorrhage, unspecified; D50.9 Iron deficiency anemia, unspecified; J98.11 Atelectasis; E87.1 Hypo-osmolality and hyponatremia; D64.9 Anemia, unspecified; L89.300 Pressure ulcer of unspecified buttock, unstageable; S40.812A Abrasion of left upper arm, initial encounter; S40.811A Abrasion of right upper arm, initial encounter; S80.812A Abrasion, left lower leg, initial encounter; S80.811A Abrasion, right lower leg, initial encounter; R41.82 Altered mental status, unspecified; L89.150 Pressure ulcer of sacral region, unstageable; K72.90 Hepatic failure, unspecified without coma; N40.1 Benign prostatic hyperplasia with lower urinary tract symptoms; F03.90 Unspecified dementia, unspecified severity, without behavioral disturbance, psychotic disturbance, mood disturbance, and anxiety; E87.0 Hyperosmolality and hypernatremia; E86.0 Dehydration; I13.0 Hypertensive heart and chronic kidney disease with heart failure and stage 1 through stage 4 chronic kidney disease, or unspecified chronic kidney disease; G93.41 Metabolic encephalopathy; K74.60 Unspecified cirrhosis of liver; Y95 Nosocomial condition; E11.649 Type 2 diabetes mellitus with hypoglycemia without coma; Z95.1 Presence of aortocoronary bypass graft; N39.0 Urinary tract infection, site not specified; E78.5 Hyperlipidemia, unspecified; R33.8 Other retention of urine; Z51.5 Encounter for palliative care; I25.2 Old myocardial infarction; E87.2 Acidosis; Z79.01 Long term (current) use of anticoagulants; Z82.49 Family history of ischemic heart disease and other diseases of the circulatory system; Z95.5 Presence of coronary angioplasty implant and graft; Z85.46 Personal history of malignant neoplasm of prostate; Z78.1 Physical restraint status; Z68.29 Body mass index [BMI] 29.0-29.9, adult; Z87.891 Personal history of nicotine dependence; Z87.442 Personal history of urinary calculi; Z91.81 History of falling; Z99.2 Dependence on renal dialysis; Z86.73 Personal history of transient ischemic attack (TIA), and cerebral infarction without residual deficits; Z79.899 Other long term (current) drug therapy
CPT/HCPCS: 36600; 70450; 71010; 76770; 80048; 80048 91; 80053; 80076; 81003; 82140; 82803; 82948; 83605; 83735; 84100; 85025; 85027; 87086; 92526 GN; 92610 GN; 93005; 94640 76; 94760; 94799; 99202; 99281; 99285; J0360; J0696; J1630; J1644; J1815; J1940; J2060; J2543; J2930; J7030; J7050; J7070; S0028